=== PATIENT | female | born 1935 | race Caucasian/White ===

== ENCOUNTER 2016-08-22 16:37 | Emergency (ER) | payer MEDICARE, MEDICAID ==
[~2016-08-22] VITALS: Ht 157.5 cm; Wt 79.4 kg
[2016-08-22] MEDS ORDERED: ROSU10TA PO (16:56)
[2016-08-22] MEDS ORDERED: metformin (16:56)
[2016-08-22] MEDS ORDERED: VALS80TA2 PO (16:56)
[2016-08-22] MEDS ORDERED: VERA240T97 PO (16:56)
[2016-08-22 17:55] LABS: BASOPHILS % (AUTO) 0.5 % (0.0-2.0); EOSINOPHILS # (AUTO) 0.1 K/uL (0.0-0.7); EOSINOPHILS % (AUTO) 1.3 % (0.0-7.0); HEMATOCRIT 40.3 % (37.0-47.0); HEMOGLOBIN 13.3 g/dL (12.0-16.0); LYMPHOCYTES # (AUTO) 1.7 K/uL (0.8-4.8); MEAN CORPUSCULAR HEMOGLOBIN 29.6 uug (27.0-31.0); MEAN CORPUSCULAR HGB CONC 33 g/dL (32.0-37.0); MEAN CORPUSCULAR VOLUME 89.6 fL (81.0-99.0); MONOCYTES # (AUTO) 0.8 K/uL (0.1-1.30); MONOCYTES % (AUTO) 10.6 % (0.0-11.0); NEUTROPHILS # (AUTO) 4.6 K/uL (1.8-8.9); NEUTROPHILS % (AUTO) 63.6 % (38.5-71.5); PLATELET COUNT (AUTO) 132 K/uL (150-450); RED CELL DISTRIBUTION WIDTH 12.8 % (11.5-14.5); WHITE BLOOD COUNT (AUTO) 7.2 K/uL (4.0-11.2)
[2016-08-22 18:02] LABS: CALCIUM 8.5 mg/dL (8.5-10.1); CREATININE 0.9 mg/dL (0.6-1.3); POTASSIUM 3.7 mmol/L (3.5-5.1)
[2016-08-22 18:07] LABS: ALBUMIN 3.4 g/dL (3.4-5.0); BILIRUBIN,TOTAL 0.3 mg/dL (0.2-1.0); TOTAL PROTEIN, SERUM 7.7 g/dL (6.4-8.2)
--- NOTE | 2016-08-22 18:48 | NUR ---
Dr. Centeno at bedside assessing patient.
--- NOTE | 2016-08-22 18:49 | NUR ---
A call from Dr. Calles
== END 2016-08-22 19:04 | disposition home or self-care (01) ==
LOC: ER 16:37
DX: J40 Bronchitis, not specified as acute or chronic (principal); I10 Essential (primary) hypertension; E11.9 Type 2 diabetes mellitus without complications; Z96.642 Presence of left artificial hip joint
CPT/HCPCS: 71020; 80053; 85025; 99285; A4663; 36415

== ENCOUNTER 2018-02-09 18:42 | Emergency (ER) | payer MEDICARE, MEDICAID ==
[~2018-02-09] VITALS: Ht 157.5 cm; Wt 77.6 kg
[~2018-02-09 18:42] MED LIST: ROSU10TA PO; VALS80TA2 PO; VERA240T97 PO; metformin
[2018-02-09] MEDS ORDERED: MAGN400C PO (18:47)
[2018-02-09] MEDS ORDERED: SITA1TAB6 PO (18:48)
[2018-02-09] MEDS ORDERED: DEXAMETHASONE SOD PHOSPHATE 10 MG INJ ONE (19:13)
[2018-02-09] MEDS ORDERED: diphenhydrAMINE 50 MG/1 ML VIAL ONE (19:13)
[2018-02-09] MEDS ORDERED: hydrOXYzine HCL 25 MG TABLET ONE (19:13)
[2018-02-09] MEDS: hydrOXYzine HCL 25 MG TABLET PO ONE (19:20)
[2018-02-09] MEDS: DEXAMETHASONE SOD PHOSPHATE 4 MG INJ IM ONE (19:20)
[2018-02-09] MEDS: diphenhydrAMINE 50 MG/1 ML VIAL IM ONE (19:20)
[2018-02-09 19:21] LABS: BASOPHILS # (AUTO) 0.2 K/uL (0.0-8.0); BASOPHILS % (AUTO) 0.9 % (0.0-2.0); EOSINOPHILS # (AUTO) 0.3 K/uL (0.0-0.7); EOSINOPHILS % (AUTO) 1.6 % (0.0-7.0); HEMATOCRIT 37.4 % (31.2-41.9); HEMOGLOBIN 12.3 g/dL (10.9-14.3); LYMPHOCYTES # (AUTO) 3.4 K/uL (20.0-40.0); LYMPHOCYTES % (AUTO) 18.2 % (20.5-51.5); MEAN CORPUSCULAR HEMOGLOBIN 30.5 uug (24.7-32.8); MEAN CORPUSCULAR HGB CONC 33 g/dL (32.3-35.6); MEAN CORPUSCULAR VOLUME 92.5 fL (75.5-95.3); MONOCYTES # (AUTO) 1.2 K/uL (2.0-10.0); MONOCYTES % (AUTO) 6.3 % (0.0-11.0); NEUTROPHILS # (AUTO) 13.6 K/uL (1.8-8.9); PLATELET COUNT (AUTO) 186 K/uL (179-408); RED BLOOD CELL COUNT(AUTO) 4.05 MIL/uL (3.63-4.92); WHITE BLOOD COUNT (AUTO) 18.6 K/uL (3.8-11.8)
[2018-02-09 19:29] LABS: CARBON DIOXIDE 29 mmol/L (21-32); CHLORIDE 102 mmol/L (98-107); GLUCOSE 156 mg/dL (74-106); POTASSIUM 3.8 mmol/L (3.5-5.1); UREA NITROGEN, BLOOD 14 mg/dL (7-18)
[2018-02-09 19:35] LABS: ALANINE AMINOTRANSFERASE 33 U/L (14-59); ALKALINE PHOSPHATASE 50 U/L (50-136); ASPARTATE AMINOTRANSFERASE 27 U/L (15-37); BILIRUBIN,TOTAL 0.5 mg/dL (0.2-1.0); TOTAL PROTEIN, SERUM 7.2 g/dL (6.4-8.2)
--- NOTE | 2018-02-09 20:08 | NUR ---
Patient discharged to home in stable conditon. Written and verbal after care instructions given. Patient verbalizes understanding of instructions.
[2018-02-09 20:09] VITALS: BP 138/74
== END 2018-02-09 20:09 | disposition home or self-care (01) ==
LOC: ER 18:43
DX: R21 Rash and other nonspecific skin eruption (principal); L29.9 Pruritus, unspecified; I10 Essential (primary) hypertension; J45.909 Unspecified asthma, uncomplicated; E11.9 Type 2 diabetes mellitus without complications; I25.10 Atherosclerotic heart disease of native coronary artery without angina pectoris; Z95.1 Presence of aortocoronary bypass graft
CPT/HCPCS: 36415; 85025; A4663; J1100; J1200

== ENCOUNTER 2018-02-13 13:54 | Emergency (ER) | payer MEDICARE, MEDICAID ==
[~2018-02-13] VITALS: Ht 157.5 cm; Wt 77.6 kg
[~2018-02-13 13:54] MED LIST changes: +MAGN400C PO; +SITA1TAB6 PO; -VALS80TA2 PO; -metformin
[2018-02-13] MEDS ORDERED: DEXAMETHASONE SOD PHOSPHATE 4 MG INJ ONE (14:57)
[2018-02-13] MEDS ORDERED: diphenhydrAMINE 50 MG/1 ML VIAL IM ONE (15:00)
[2018-02-13] MEDS ORDERED: DEXAMETHASONE SOD PHOSPHATE 4 MG INJ IM ONE (15:00)
[2018-02-13] MEDS ORDERED: diphenhydrAMINE 50 MG/1 ML VIAL ONE (15:06)
--- NOTE | 2018-02-13 15:19 | NUR ---
Patient discharged to home in stable conditon. Written and verbal after care instructions given. Patient verbalizes understanding of instructions.
== END 2018-02-13 15:20 | disposition home or self-care (01) ==
LOC: ER 13:54
DX: T14.8XXA Other injury of unspecified body region, initial encounter (principal); I10 Essential (primary) hypertension; J45.909 Unspecified asthma, uncomplicated; E11.9 Type 2 diabetes mellitus without complications; I25.10 Atherosclerotic heart disease of native coronary artery without angina pectoris; Z95.1 Presence of aortocoronary bypass graft; W57.XXXA Bitten or stung by nonvenomous insect and other nonvenomous arthropods, initial encounter; Y93.89 Activity, other specified; Y92.89 Other specified places as the place of occurrence of the external cause; Y99.8 Other external cause status
CPT/HCPCS: 96372 ×2; 99284; A4663; J1100; J1200

== ENCOUNTER 2019-04-14 17:19 | Emergency (ER) | payer MEDICARE, MEDICAID ==
[~2019-04-14] VITALS: Ht 154.9 cm; Wt 74.8 kg
[~2019-04-14 17:19] MED LIST changes: -ROSU10TA PO; +ROSU10TA2 PO; +VERA240T14 PO; -VERA240T97 PO
--- NOTE | 2019-04-14 17:52 | NUR ---
PATIENT WAS SEEN BY . DC, RX AND FOLLOW UP INSTRUCTIONS GIVEN AND EXPLAINED TO PATIENT WHO STATES SHE UNDERSTANDS ALL INSTRUCTIONS.
== END 2019-04-14 17:53 | disposition home or self-care (01) ==
LOC: ER 17:19
DX: M70.22 Olecranon bursitis, left elbow (principal); J45.909 Unspecified asthma, uncomplicated; E11.9 Type 2 diabetes mellitus without complications; I25.10 Atherosclerotic heart disease of native coronary artery without angina pectoris; Z95.1 Presence of aortocoronary bypass graft; Z79.899 Other long term (current) drug therapy; Y93.89 Activity, other specified
CPT/HCPCS: A4663

== ENCOUNTER 2022-04-27 00:06 | Emergency (ER) | payer MEDICAID, MEDICARE ==
[~2022-04-27 00:06] MED LIST changes: -VERA240T14 PO; +VERA240T32 PO
--- NOTE | 2022-04-27 02:00 | NUR ---
Patient was just called at this time to be triaged due to multiple rescue runs and ER being full of patient. But patient was not present in the waiting room or outside of ER.
--- NOTE | 2022-04-27 02:46 | NUR ---
PATIENT WAS CALLED TO BE RIAGED BUT WAS NOT PRESENT IN THE WAITING ROOM OR OUTSIDE OF ER.
--- NOTE | 2022-04-27 03:05 | NUR ---
PATIENT WAS CALLED TO BE TRIAGED BUT WAS NOT PRESENT IN THE WAITING ROOM OR OUTSIDE OF ER. PATIENT WAS NOT TRIAGED OR SEEN BY [facility].
== END 2022-04-27 03:06 | disposition left against medical advice (07) ==
LOC: ER 00:10
DX: Z53.21 Procedure and treatment not carried out due to patient leaving prior to being seen by health care provider (principal)

== ENCOUNTER 2024-12-14 17:42 | Inpatient (IN) | payer MEDICARE, OTHER ==
[~2024-12-14] VITALS: Ht 157.5 cm; Wt 67.1 kg
[2024-12-14 17:58] VITALS: BP 125/85; TEMP 98
[2024-12-14 18:17] VITALS: BP 125/85; TEMP 98
[2024-12-14 21:00] VITALS: BP 146/70; TEMP 98.4; O2SAT 94
[2024-12-14] MEDS ORDERED: LORA-259 PO (21:07)
[2024-12-14] MEDS ORDERED: PANT40TA2 PO (21:07)
[2024-12-14] MEDS ORDERED: ENOX40DI SQ (21:07)
[2024-12-14] MEDS ORDERED: DULO60CA45 PO (21:07)
[2024-12-14] MEDS ORDERED: ASPI81TA31 PO (21:07)
[2024-12-14] MEDS ORDERED: ATOR40TA PO (21:07)
[2024-12-14] MEDS ORDERED: MAG30ORA2 PO (21:07)
[2024-12-14] MEDS ORDERED: IBUP-1957 PO (21:07)
[2024-12-14] MEDS ORDERED: CARB1TAB21 PO (21:07)
[2024-12-14] MEDS ORDERED: METF-442 PO (21:07)
[2024-12-14] MEDS ORDERED: TRAM50TA PO (21:07)
[2024-12-14] MEDS ORDERED: ACET-3117 PO (21:07)
[2024-12-14] MEDS ORDERED: MAGN400O6 PO (21:07)
[2024-12-14] MEDS ORDERED: VALS160T2 PO (21:07)
[2024-12-14] MEDS: CARBIDOPA/LEVODOPA 25-100MG TABLET PO SCH (22:13)
[2024-12-14] MEDS: TRAMADOL HCL 50 MG TABLET PO PRN (22:18)
[2024-12-14] MEDS ORDERED: REMEDY ESSENTIAL ZINC PASTE 113 GM TOP PRN (23:00)
[2024-12-15] MEDS: PANTOPRAZOLE SODIUM 40 MG TABLET.DR PO SCH (06:49)
[2024-12-15 07:30] LABS: PLATELET COUNT (AUTO) 130 K/uL (179-408); RED BLOOD CELL COUNT(AUTO) 3.07 MIL/uL (3.63-4.92); RED CELL DISTRIBUTION WIDTH 14.1 % (12.3-17.7); WHITE BLOOD COUNT (AUTO) 8.9 K/uL (3.8-11.8)
[2024-12-15 07:34] VITALS: BP 115/63; TEMP 97.6; O2SAT 96
[2024-12-15 08:02] LABS: IRON, SERUM 25 ug/dL (50-175)
[2024-12-15] MEDS: ENOXAPARIN SODIUM 40 MG/0.4 ML DISP.SYRIN SQ SCH (08:17)
[2024-12-15] MEDS: VALSARTAN 160 MG TABLET PO SCH (08:18)
[2024-12-15] MEDS: ASPIRIN 81 MG TAB.CHEW PO SCH (08:18)
[2024-12-15] MEDS: CARBIDOPA/LEVODOPA 25-100MG TABLET PO SCH (08:18)
[2024-12-15 08:27] LABS: ASPARTATE AMINOTRANSFERASE 18 U/L (15-37); CREATININE 0.6 mg/dL (0.6-1.3); SODIUM SERUM 138 mmol/L (136-145); TOTAL PROTEIN, SERUM 5.8 g/dL (6.4-8.2); UREA NITROGEN, BLOOD 13 mg/dL (7-18)
[2024-12-15] MEDS ORDERED: VERAPAMIL 180 MG PO SCH (09:00)
[2024-12-15] MEDS ORDERED: [UNRECOGNIZED DRUG - OTHER] PO SCH (09:00)
[2024-12-15] MEDS ORDERED: Sitagliptin Phos/Metformin Hcl (Janumet 50-1,000 Mg Tabl PO SCH (09:00)
[2024-12-15] MEDS ORDERED: VERA180T24 PO (09:43)
[2024-12-15] MEDS: [UNRECOGNIZED DRUG - OTHER] PO SCH (09:51)
[2024-12-15] MEDS: VERAPAMIL 180 MG PO SCH (09:51)
[2024-12-15 15:35] VITALS: BP 110/66; TEMP 97; O2SAT 97
[2024-12-15] MEDS: METFORMIN HCL 500 MG TABLET PO SCH (17:39)
[2024-12-15] MEDS: DULOXETINE 60 MG CAPSULE.DR PO SCH (17:39)
[2024-12-15] MEDS ORDERED: MIRALAX 17 GM POWD.PACK PO PRN (17:45)
[2024-12-15 20:00] VITALS: BP 153/81; TEMP 99.2; O2SAT 95
[2024-12-15] MEDS: DOCUSATE SODIUM 100 MG CAPSULE PO SCH (20:18)
[2024-12-15] MEDS: MAGNESIUM OXIDE 400 MG TABLET PO SCH (20:18)
[2024-12-15] MEDS: ATORVASTATIN 10 MG TABLET PO SCH (20:20)
[2024-12-15] MEDS ORDERED: ATORVASTATIN 40 MG TABLET PO SCH (21:00)
[2024-12-16 04:30] VITALS: BP 138/77; TEMP 99; O2SAT 93
[2024-12-16] MEDS: VALSARTAN 80 MG TABLET PO SCH (08:44)
[2024-12-16] MEDS: ASPIRIN EC 81 MG TABLET.DR PO SCH (08:44)
[2024-12-16] MEDS: CYANOCOBALAMIN 1,000 MCG TABLET PO SCH (08:45)
[2024-12-16] MEDS: FERROUS SULFATE 325 MG TABEC PO SCH (08:45)
[2024-12-16] MEDS: VERAPAMIL 180 MG PO SCH (08:47)
[2024-12-16] MEDS: [UNRECOGNIZED DRUG - OTHER] PO SCH (08:47)
[2024-12-16 09:23] VITALS: BP 130/61; TEMP 98.8; O2SAT 93
[2024-12-16] MEDS: ACETAMINOPHEN 325 MG TABLET PO PRN (11:57)
[2024-12-16] MEDS: PRESERVISION AREDS 2 FORMULA PO SCH (11:57)
[2024-12-16 16:28] VITALS: BP 117/61; TEMP 98.6; O2SAT 93
[2024-12-16 20:07] VITALS: BP 112/64; TEMP 99; O2SAT 94
[2024-12-16] MEDS: ATORVASTATIN 40 MG TABLET PO SCH (20:45)
[2024-12-17 06:46] VITALS: BP 154/73; TEMP 98.1; O2SAT 92
[2024-12-17] MEDS: MAGNESIUM HYDROXIDE 30 ML LIQUID UDC PO PRN (11:40)
[2024-12-17] MEDS: [UNRECOGNIZED DRUG - OTHER] PO SCH (12:14)
[2024-12-17] MEDS ORDERED: METFORMIN HCL 500 MG TABLET PO SCH (18:00)
[2024-12-17] MEDS: METFORMIN HCL 500 MG TABLET PO SCH (18:00)
[2024-12-17 18:13] VITALS: BP 128/70; TEMP 97.6; O2SAT 95
[2024-12-17 20:37] VITALS: BP 140/70; TEMP 98.2; O2SAT 95
[2024-12-17] MEDS: VALSARTAN 80 MG TABLET PO SCH (20:38)
[2024-12-18 06:37] VITALS: BP 154/91; TEMP 98.6; O2SAT 94
[2024-12-18 08:36] VITALS: BP 140/78; TEMP 98.2; O2SAT 94
[2024-12-18] MEDS: HYDROCODONE/APAP 5-325MG TABLET PO PRN (08:39)
[2024-12-18] MEDS: CYANOCOBALAMIN 1000 MCG/ML VIAL IM SCH (08:39)
[2024-12-18 17:29] VITALS: BP 123/71; TEMP 98.4; O2SAT 95
[2024-12-18 20:13] VITALS: BP 143/65; TEMP 98.5; O2SAT 96
[2024-12-18] MEDS: LORAZEPAM 1 MG TABLET PO PRN (22:42)
[2024-12-19 06:48] VITALS: BP 149/86; TEMP 98.2; O2SAT 95
[2024-12-19 08:00] VITALS: BP 170/87; TEMP 97.9; O2SAT 94
[2024-12-19 09:00] VITALS: BP 155/81
[2024-12-19] MEDS ORDERED: [UNRECOGNIZED DRUG - OTHER] PO SCH (12:08)
[2024-12-19] MEDS: [UNRECOGNIZED DRUG - OTHER] PO SCH (12:30)
[2024-12-19 16:00] VITALS: BP 122/76; TEMP 98.9; O2SAT 93
[2024-12-19 20:44] VITALS: BP 151/93; TEMP 98.5
[2024-12-19] MEDS: OXYCODONE HCL 5 MG TABLET PO SCH (21:11)
[2024-12-19 23:00] VITALS: BP 132/82; TEMP 98.4; O2SAT 97
[2024-12-20 06:16] VITALS: BP 146/83; TEMP 98.1; O2SAT 96
[2024-12-20 07:57] LABS: PLATELET COUNT (AUTO) 203 K/uL (179-408); RED BLOOD CELL COUNT(AUTO) 3.03 MIL/uL (3.63-4.92); RED CELL DISTRIBUTION WIDTH 14.2 % (12.3-17.7); WHITE BLOOD COUNT (AUTO) 9.5 K/uL (3.8-11.8)
[2024-12-20 08:00] VITALS: BP 156/83; TEMP 97.7; O2SAT 95
[2024-12-20 08:06] LABS: CREATININE 0.8 mg/dL (0.6-1.3); SODIUM SERUM 142 mmol/L (136-145); UREA NITROGEN, BLOOD 12 mg/dL (7-18)
[2024-12-20 17:11] VITALS: BP 130/71; TEMP 98; O2SAT 95
[2024-12-20 18:16] LABS: *BILIRUBIN,URIN NEGATIVE (NEGATIVE); *BLOOD, URINE NEGATIVE (NEGATIVE); *CLARITY,URINE CLEAR (CLEAR); *COLOR,URINE YELLOW (YELLOW); *KETONES,URINE NEGATIVE (NEGATIVE); *PROTEIN,URINE NEGATIVE (NEGATIVE); *UROBILINOGEN,URINE 0.2 E.U./dl (NORMAL); LEUKOCYTE ESTERASE ,URINE NEGATIVE (NEGATIVE); NITRITE, URINE NEGATIVE (NEGATIVE); UGLUCOSE NEGATIVE (NEGATIVE)
[2024-12-20 19:00] VITALS: BP 123/63; TEMP 99.2; O2SAT 95
[2024-12-21 05:20] VITALS: BP 149/73; TEMP 98.8; O2SAT 89
[2024-12-21 08:00] VITALS: BP 140/64; TEMP 98.6; O2SAT 93
[2024-12-21] MEDS: HYDROMORPHONE HCL 2 MG TABLET PO PRN (10:22)
[2024-12-21 20:45] VITALS: BP 111/67; TEMP 99.5; O2SAT 95
[2024-12-22 05:00] VITALS: BP 126/65; TEMP 98.5; O2SAT 96
[2024-12-22 07:51] VITALS: BP 156/86; TEMP 97.8; O2SAT 94
[2024-12-22] MEDS: LIDOCAINE 5% PATCH TD SCH (13:30)
[2024-12-22 16:00] VITALS: BP 125/74; TEMP 98.2; O2SAT 97
[2024-12-22] MEDS: ERGOCALCIFEROL 50,000 UNIT CAPSULE PO SCH (18:34)
[2024-12-22 20:00] VITALS: BP 137/78; TEMP 98.4; O2SAT 100
[2024-12-23 06:13] VITALS: BP 143/74; TEMP 98.1; O2SAT 94
[2024-12-23 07:50] VITALS: BP 162/78; TEMP 98.1; O2SAT 94
[2024-12-23 16:16] VITALS: BP 133/68; TEMP 98; O2SAT 94
[2024-12-23 22:09] VITALS: BP 165/86; TEMP 99.3; O2SAT 95
[2024-12-24 06:52] VITALS: BP 161/81; TEMP 98.1; O2SAT 96
[2024-12-24 07:56] VITALS: BP 136/65; TEMP 98.3; O2SAT 97
[2024-12-24 16:00] VITALS: BP 103/57; TEMP 97.8; O2SAT 98
[2024-12-24 20:39] VITALS: BP 168/82; TEMP 99.8; O2SAT 95
[2024-12-24 21:59] VITALS: BP 142/73
[2024-12-25 05:00] VITALS: BP 145/67; TEMP 98.5; O2SAT 95
[2024-12-25 07:31] VITALS: BP 128/65; TEMP 97.8; O2SAT 97
[2024-12-25 16:00] VITALS: BP 103/54; TEMP 97; O2SAT 97
[2024-12-25 19:00] VITALS: BP 138/73; TEMP 98.5; O2SAT 92
[2024-12-26 05:00] VITALS: BP 151/76; TEMP 97.9; O2SAT 90
[2024-12-26 07:41] VITALS: BP 172/82; TEMP 98; O2SAT 95
[2024-12-26 15:42] VITALS: BP 120/57; TEMP 98; O2SAT 93
[2024-12-26 20:31] VITALS: BP 153/70; TEMP 98.6; O2SAT 95
[2024-12-27 05:22] VITALS: BP 155/80; TEMP 97.6; O2SAT 94
[2024-12-27 08:00] VITALS: BP 170/82; TEMP 97.8; O2SAT 94
[2024-12-27 10:30] VITALS: BP 145/77
[2024-12-27 16:00] VITALS: BP 137/70; TEMP 98.3; O2SAT 93
[2024-12-27 20:00] VITALS: BP 183/90; TEMP 98.8; O2SAT 94
[2024-12-28 05:00] VITALS: BP 188/87; TEMP 98.1; O2SAT 96
[2024-12-28 07:49] VITALS: BP 159/72; TEMP 97; O2SAT 94
[2024-12-28] MEDS: ERGOCALCIFEROL 50,000 UNIT CAPSULE PO SCH (09:44)
[2024-12-28 15:43] VITALS: BP 155/81; TEMP 97.7; O2SAT 96
[2024-12-28] MEDS: ONDANSETRON ODT 4 MG TAB.RAPDIS SL PRN (15:51)
[2024-12-28 16:16] LABS: RED BLOOD CELL COUNT(AUTO) 3.56 MIL/uL (3.63-4.92); RED CELL DISTRIBUTION WIDTH 14.2 % (12.3-17.7); WHITE BLOOD COUNT (AUTO) 10.2 K/uL (3.8-11.8)
[2024-12-28 16:17] LABS: PLATELET COUNT (AUTO) 316 K/uL (179-408)
[2024-12-28 16:28] LABS: ASPARTATE AMINOTRANSFERASE 18 U/L (15-37); CREATININE 0.7 mg/dL (0.6-1.3); SODIUM SERUM 138 mmol/L (136-145); TOTAL PROTEIN, SERUM 6.6 g/dL (6.4-8.2); UREA NITROGEN, BLOOD 13 mg/dL (7-18)
[2024-12-28 20:27] LABS: *BILIRUBIN,URIN NEGATIVE (NEGATIVE); *BLOOD, URINE NEGATIVE (NEGATIVE); *CLARITY,URINE CLEAR (CLEAR); *COLOR,URINE YELLOW (YELLOW); *KETONES,URINE TRACE (NEGATIVE); *PROTEIN,URINE 1+ (NEGATIVE); *UROBILINOGEN,URINE 0.2 E.U./dl (NORMAL); LEUKOCYTE ESTERASE ,URINE TRACE (NEGATIVE); NITRITE, URINE NEGATIVE (NEGATIVE); UGLUCOSE NEGATIVE (NEGATIVE)
[2024-12-28] MEDS: CEFEPIME HCL 1 G in IV DEXTROSE 5% 50 ML IV SCH (20:46)
[2024-12-28 21:41] VITALS: BP 96/54; TEMP 98; O2SAT 95
[2024-12-28 23:00] LABS: SQUAMOUS EPITHELIAL CELL,UR FEW /HPF (NONE SEEN)
[2024-12-29 06:20] VITALS: BP 128/72; TEMP 98.2; O2SAT 93
[2024-12-29 08:03] VITALS: BP 153/73; TEMP 98.3; O2SAT 93
[2024-12-29 08:37] VITALS: BP 153/73
[2024-12-29 13:40] VITALS: TEMP 98.3
== END 2024-12-29 14:00 | DRG 560 ==
LOC: UNDODISIN 12-15 18:00
PROVIDERS: ADMIT Physical Medicine & Rehabilitation Pain Medicine; ATTEND Physical Medicine & Rehabilitation Pain Medicine
PROC: 05HB33Z Insertion of Infusion Device into Right Basilic Vein, Percutaneous Approach (ICD-10-PCS; principal; 2024-12-28)
DX: S32.592D Other specified fracture of left pubis, subsequent encounter for fracture with routine healing (principal); D68.59 Other primary thrombophilia; J98.11 Atelectasis; N39.0 Urinary tract infection, site not specified; W18.30XD Fall on same level, unspecified, subsequent encounter; I10 Essential (primary) hypertension; E78.5 Hyperlipidemia, unspecified; G20.A1 Parkinson's disease without dyskinesia, without mention of fluctuations; D64.9 Anemia, unspecified; E11.51 Type 2 diabetes mellitus with diabetic peripheral angiopathy without gangrene; E66.9 Obesity, unspecified; Z68.27 Body mass index [BMI] 27.0-27.9, adult; E78.00 Pure hypercholesterolemia, unspecified; I25.10 Atherosclerotic heart disease of native coronary artery without angina pectoris; Z95.1 Presence of aortocoronary bypass graft; Z87.891 Personal history of nicotine dependence; Z95.820 Peripheral vascular angioplasty status with implants and grafts; Z96.643 Presence of artificial hip joint, bilateral; K21.9 Gastro-esophageal reflux disease without esophagitis; M19.90 Unspecified osteoarthritis, unspecified site
CPT/HCPCS: 36415; 83550; 83735; 84100; 84443; 85025; 85610; 87077; 87086; 93005; 97535-GO-CO; A4663; J0692; J1650; J3420; Q0162

== ENCOUNTER 2025-05-16 13:41 | Inpatient (IN) | payer MEDICARE, OTHER ==
[~2025-05-16] VITALS: Ht 162.6 cm; Wt 72.6 kg
[~2025-05-16 13:41] MED LIST changes: +ACET-3117 PO; +ASPI81TA31 PO; +ATOR40TA PO; +CARB1TAB33 PO; +DULO60CA45 PO; +ENOX40DI SQ; +IBUP-1957 PO; +LORA-259 PO; +MAG30ORA2 PO; -MAGN400C PO; +MAGN400O6 PO; +METF-442 PO; +PANT40TA2 PO; -ROSU10TA2 PO; -SITA1TAB6 PO; +TRAM50TA PO; +VALS160T2 PO; -VERA240T32 PO; +[UNRECOGNIZED DRUG - CODE] PO
[2025-05-16] MEDS: ACETAMINOPHEN 325 MG TABLET PO ONE (13:56)
[2025-05-16] MEDS ORDERED: ACETAMINOPHEN 325 MG TABLET ONE (13:57)
[2025-05-16] MEDS ORDERED: VERAPAMIL 180 MG PO ONE (14:29)
[2025-05-16] MEDS ORDERED: [UNRECOGNIZED DRUG - OTHER] PO ONE (14:29)
[2025-05-16] MEDS ORDERED: PROPRANOLOL HCL 10 MG TABLET ONE (14:30)
[2025-05-16] MEDS ORDERED: VALSARTAN 80 MG TABLET ONE (14:30)
[2025-05-16] MEDS: [UNRECOGNIZED DRUG - OTHER] PO ONE (14:47)
[2025-05-16] MEDS: VERAPAMIL 180 MG PO ONE (14:47)
[2025-05-16] MEDS: PROPRANOLOL HCL 10 MG TABLET PO ONE (14:48)
[2025-05-16] MEDS: VALSARTAN 80 MG TABLET PO ONE (14:48)
[2025-05-16] MEDS ORDERED: ONDANSETRON 4 MG/2 ML VIAL IV PRN (16:00)
[2025-05-16] MEDS ORDERED: MAGNESIUM HYDROXIDE 30 ML LIQUID UDC PO PRN (16:00)
[2025-05-16 16:15] VITALS: BP 144/80
[2025-05-16 16:22] LABS: PLATELET COUNT (AUTO) 207 K/uL (179-408); RED BLOOD CELL COUNT(AUTO) 4.00 MIL/uL (3.63-4.92); RED CELL DISTRIBUTION WIDTH 15.9 % (12.3-17.7); WHITE BLOOD COUNT (AUTO) 14.5 K/uL (3.8-11.8)
[2025-05-16] MEDS ORDERED: HYDR-5156 PO (16:27)
[2025-05-16] MEDS ORDERED: AMLO-212 PO (16:27)
[2025-05-16] MEDS ORDERED: ESOM40CA PO (16:27)
[2025-05-16] MEDS ORDERED: FESO8TAB PO (16:27)
[2025-05-16] MEDS ORDERED: SPIR50TA5 PO (16:27)
[2025-05-16] MEDS ORDERED: PROP10TA10 PO (16:27)
[2025-05-16] MEDS ORDERED: ERGO125010 PO (16:32)
[2025-05-16] MEDS ORDERED: BUSP10TA3 PO (16:32)
[2025-05-16 16:34] LABS: CREATININE 0.8 mg/dL (0.6-1.3); SODIUM SERUM 138 mmol/L (136-145); UREA NITROGEN, BLOOD 10 mg/dL (7-18)
[2025-05-16] MEDS ORDERED: [UNRECOGNIZED DRUG - CODE] PO (16:53)
[2025-05-16] MEDS ORDERED: METF-440 PO (16:53)
[2025-05-16] MEDS: METFORMIN HCL 500 MG TABLET PO SCH (18:23)
[2025-05-16] MEDS: CARBIDOPA/LEVODOPA 25-100MG TABLET PO SCH (18:23)
[2025-05-16] MEDS: PROPRANOLOL HCL 10 MG TABLET PO SCH (18:23)
[2025-05-16 19:36] VITALS: BP 139/81; TEMP 98.5; O2SAT 93
[2025-05-16] MEDS: TRAMADOL HCL 50 MG TABLET PO PRN (20:36)
[2025-05-17 05:31] VITALS: BP 135/78; TEMP 99.5; O2SAT 93
[2025-05-17] MEDS: PANTOPRAZOLE SODIUM 40 MG TABLET.DR PO SCH (07:00)
[2025-05-17 07:17] LABS: PLATELET COUNT (AUTO) 189 K/uL (179-408); RED BLOOD CELL COUNT(AUTO) 3.78 MIL/uL (3.63-4.92); RED CELL DISTRIBUTION WIDTH 16.1 % (12.3-17.7); WHITE BLOOD COUNT (AUTO) 10.9 K/uL (3.8-11.8)
[2025-05-17 07:35] LABS: CREATININE 0.8 mg/dL (0.6-1.3); SODIUM SERUM 141 mmol/L (136-145); UREA NITROGEN, BLOOD 11 mg/dL (7-18)
[2025-05-17] MEDS: SPIRONOLACTONE 50 MG TABLET PO SCH (08:34)
[2025-05-17] MEDS: [UNRECOGNIZED DRUG - OTHER] PO SCH (08:36)
[2025-05-17] MEDS: VERAPAMIL 180 MG PO SCH (08:36)
[2025-05-17] MEDS: AMLODIPINE 5 MG TABLET PO SCH (08:38)
[2025-05-17] MEDS: DULOXETINE 60 MG CAPSULE.DR PO SCH (10:28)
[2025-05-17 11:56] VITALS: BP 126/60; TEMP 98; O2SAT 93
[2025-05-17] MEDS: ACETAMINOPHEN 325 MG TABLET PO PRN (15:18)
[2025-05-17 15:36] VITALS: BP 134/61; TEMP 98; O2SAT 93
[2025-05-17] MEDS: HEPARIN SODIUM,PORCINE 5,000 UNITS/ML VIAL SQ SCH (20:26)
[2025-05-18 06:26] LABS: PLATELET COUNT (AUTO) 166 K/uL (179-408); RED BLOOD CELL COUNT(AUTO) 3.66 MIL/uL (3.63-4.92); RED CELL DISTRIBUTION WIDTH 15.8 % (12.3-17.7); WHITE BLOOD COUNT (AUTO) 10.4 K/uL (3.8-11.8)
[2025-05-18 06:30] VITALS: BP 155/76; TEMP 98.7; O2SAT 92
[2025-05-18 06:53] LABS: CREATININE 0.9 mg/dL (0.6-1.3); SODIUM SERUM 142 mmol/L (136-145); UREA NITROGEN, BLOOD 19 mg/dL (7-18)
[2025-05-18 06:57] LABS: *AMPHETAMINE, URINE NEGATIVE (NEGATIVE); *BARBITURATE, URINE NEGATIVE (NEGATIVE); *BENZODIAZEPINE, URINE NEGATIVE (NEGATIVE); *CANNABINOID, URINE NEGATIVE (NEGATIVE); *COCCAINE, URINE NEGATIVE (NEGATIVE); *OPIATE, URINE NEGATIVE (NEGATIVE); *PHENCYCLIDINE SCREEN,URINE NEGATIVE (NEGATIVE); FENTANYL, URINE NEGATIVE (NEGATIVE)
[2025-05-18] MEDS: ERGOCALCIFEROL 50,000 UNIT CAPSULE PO SCH (09:34)
[2025-05-18 12:00] VITALS: BP 133/73; TEMP 98.8; O2SAT 93
[2025-05-18 16:00] VITALS: BP 107/65; TEMP 99.2; O2SAT 96
[2025-05-18 19:00] VITALS: BP 105/52; TEMP 99.1; O2SAT 93
[2025-05-18] MEDS: LORAZEPAM 1 MG TABLET PO PRN (20:20)
[2025-05-19 04:00] VITALS: BP 98/56; TEMP 99; O2SAT 94
[2025-05-19 06:47] LABS: PLATELET COUNT (AUTO) 177 K/uL (179-408); RED BLOOD CELL COUNT(AUTO) 3.47 MIL/uL (3.63-4.92); RED CELL DISTRIBUTION WIDTH 16.0 % (12.3-17.7); WHITE BLOOD COUNT (AUTO) 10.5 K/uL (3.8-11.8)
[2025-05-19 06:58] LABS: CREATININE 1.2 mg/dL (0.6-1.3); SODIUM SERUM 138 mmol/L (136-145); UREA NITROGEN, BLOOD 25 mg/dL (7-18)
[2025-05-19 08:54] VITALS: BP 109/55; TEMP 98.8; O2SAT 94
[2025-05-19] MEDS ORDERED: HEPA50008 SQ (11:30)
[2025-05-19] MEDS ORDERED: TRAM50TA2 PO ×2 (11:30→14:43)
[2025-05-19] MEDS ORDERED: MAGN400O6 PO (11:30)
[2025-05-19] MEDS ORDERED: DULO60CA64 PO (11:30)
[2025-05-19] MEDS ORDERED: LORA-259 PO (11:30)
[2025-05-19] MEDS ORDERED: PANT40TA49 PO (11:30)
[2025-05-19 11:58] VITALS: BP 111/54; TEMP 98.1; O2SAT 96
[2025-05-19] MEDS ORDERED: ACET-3752 PO (14:37)
== END 2025-05-19 13:29 | DRG 536 ==
LOC: ER 13:50 → MEDSURG3 16:16
PROVIDERS: ADMIT Nurse Practitioner Family; ATTEND Nurse Practitioner Family
DX: S72.115A Nondisplaced fracture of greater trochanter of left femur, initial encounter for closed fracture (principal); M97.02XA Periprosthetic fracture around internal prosthetic left hip joint, initial encounter; F33.2 Major depressive disorder, recurrent severe without psychotic features; M84.454A Pathological fracture, pelvis, initial encounter for fracture; E83.51 Hypocalcemia; G20.A1 Parkinson's disease without dyskinesia, without mention of fluctuations; D64.9 Anemia, unspecified; E11.9 Type 2 diabetes mellitus without complications; E66.9 Obesity, unspecified; J45.909 Unspecified asthma, uncomplicated; I10 Essential (primary) hypertension; D72.829 Elevated white blood cell count, unspecified; F41.9 Anxiety disorder, unspecified; I25.10 Atherosclerotic heart disease of native coronary artery without angina pectoris; W01.0XXA Fall on same level from slipping, tripping and stumbling without subsequent striking against object, initial encounter; Y92.89 Other specified places as the place of occurrence of the external cause; Z96.643 Presence of artificial hip joint, bilateral; R26.2 Difficulty in walking, not elsewhere classified; K21.9 Gastro-esophageal reflux disease without esophagitis; Z95.1 Presence of aortocoronary bypass graft; Z68.27 Body mass index [BMI] 27.0-27.9, adult; M89.8X9 Other specified disorders of bone, unspecified site; Z79.899 Other long term (current) drug therapy; Z79.84 Long term (current) use of oral hypoglycemic drugs; R79.89 Other specified abnormal findings of blood chemistry
CPT/HCPCS: 36415; 71045; 72170; 73502; 73700; 83735; 84100; 85025; 85610; 93005; 93307; A4606; A4663; A6213; G0378; J1644